=== PATIENT | female | born 1955 ===

== ENCOUNTER 2018-10-18 22:57 | Emergency (ER) | payer SELFPAY ==
[2018-10-18 23:22] VITALS: BP 145/78; PULSE 81; RESP 16; TEMP 98.4; O2SAT 98
[2018-10-19] MEDS ORDERED: Oxycodone/Acetaminophen 5/325 mg Tab PO STA (00:02)
--- NOTE | 2018-10-19 00:03 | ED PDOC ---
HPI: Dental Pain/Injury Time Seen by Provider: 10/19/18 00:01 Chief Complaint (Nursing): Dental Pain Chief Complaint (Provider): DENTAL PAIN History Per: Patient (63Y/O FEMALE WITH DENTAL PAIN SINCE HER ONLY TOOTH WAS BROKEN 1 WEEK AGO. DENIES ANY FEVERS/CHILLS. NOTES SHE HAS TAKEN TYLENOL WITHOUT RELIEF. OTHERWISE WEARS DENTAL PROSTHESIS.) Past Medical History Reviewed: Historical Data, Nursing Documentation, Vital Signs Vital Signs: Last Vital Signs Temp 98.4 F 10/18/18 23:19 Pulse 81 10/18/18 23:19 Resp 16 10/18/18 23:19 BP 145/78 10/18/18 23:19 Pulse Ox 98 10/18/18 23:19 - Family History Family History: States: No Known Family Hx - Home Medications Home Medications: Ambulatory Orders Medication Instructions Recorded Ibuprofen [Motrin] 600 mg PO Q8 PRN #15 tab 10/19/18 Penicillin VK [Penicillin VK Tab] 1 tab PO QID #40 tab 10/19/18 - Allergies Allergies/Adverse Reactions: Allergies Allergy/AdvReac Type Severity Reaction Status Date / Time No Known Allergies Allergy Verified 10/18/18 23:19 Review of Systems ROS Statement: Except As Marked, All Systems Reviewed And Found Negative Physical Exam - Reviewed Nursing Documentation Reviewed: Yes Vital Signs Reviewed: Yes - Physical Exam Appears: Positive for: Well, Non-toxic, No Acute Distress Head Exam: Positive for: ATRAUMATIC, NORMAL INSPECTION, NORMOCEPHALIC Skin: Positive for: Normal Color, Warm, DRY Eye Exam: Positive for: EOMI, Normal appearance, PERRL ENT: Positive for: Normal ENT Inspection, Other (BROKEN TOOTH NOTED INCISOR MAXILLARY REGION. NO SIGNS OF ERYTHEMA OR ABSCESS.) Neck: Positive for: Normal, Painless ROM Cardiovascular/Chest: Positive for: Regular Rate, Rhythm Respiratory: Positive for: CNT, Normal Breath Sounds Gastrointestinal/Abdominal: Positive for: Normal Exam, Soft Back: Positive for: Normal Inspection Extremity: Positive for: Normal ROM Neurologic/Psych: Positive for: Alert, Oriented - ECG O2 Sat by Pulse Oximetry: 98 - Progress ED Course And Treament: PERCOCET 5/325 MG X 1 DOSE ZOFRAN 4 MG ODT Disposition - Clinical Impression Clinical Impression: Pain, dental - Patient ED Disposition Is Patient to be Admitted: No - Disposition Referrals: Armen Rae DDS [Staff Provider] - Disposition: Routine/Home Disposition Time: 00:03 Condition: FAIR Prescriptions: Ibuprofen [Motrin] 600 mg PO Q8 PRN #15 tab PRN Reason: Pain, Moderate (4-7) Penicillin VK [Penicillin VK Tab] 1 tab PO QID #40 tab Instructions: Dental Pain (DC) Print Language: KHMER
[2018-10-19] MEDS ORDERED: Oxycodone/Acetaminophen 5/325 mg Tab ONE (00:15)
== END 2018-10-19 01:17 | disposition home or self-care (01) ==
LOC: H.ER 22:57
DX: K08.89 Other specified disorders of teeth and supporting structures (principal)